=== PATIENT | male | born 1965 | race Caucasian/White ===

== ENCOUNTER 2022-10-21 11:10 | Outpatient (NON) | payer OTHER, SELFPAY | END 2022-10-21 11:11 | disposition home or self-care (01) | PROVIDERS: Visit Provider Nurse Practitioner | DX: C44.529 Squamous cell carcinoma of skin of other part of trunk (principal) | CPT/HCPCS: 88305 ==

== ENCOUNTER 2022-12-16 08:00 | Outpatient (NON) | payer OTHER, SELFPAY | END 2022-12-16 08:01 | disposition home or self-care (01) | LOC: ANHLAB 12-18 12:07 | PROVIDERS: Visit Provider Nurse Practitioner | DX: C44.529 Squamous cell carcinoma of skin of other part of trunk (principal) | CPT/HCPCS: 88304 ==